=== PATIENT | female | born 1965 | race Caucasian/White ===

== ENCOUNTER 2017-08-26 10:54 | Day surgery (SDC) | payer OTHER ==
[2017-08-26] VITALS (14 sets, daily range): BP systolic 106–131; BP diastolic 57–75; PULSE 46–72; RESP 12–16; Ht 167.6 cm; Wt 72.6 kg
[~2017-08-26] VITALS: Ht 167.6 cm; Wt 72.6 kg
[~2017-08-26 10:54] MED LIST: CEFAZOLIN 2 GM/50 ML (PMX) 50 ML IVPB SCH; CEPH-443 PO; IBUP-1542 PO; SOD CHLORIDE 0.9% 1,000 ML IV SCH
--- NOTE | 2017-08-26 11:58 | RADRPT ---
PROCEDURE: XR Chest 1 View. CLINICAL INDICATION: Abnormal breath sounds, preop. TECHNIQUE: AP view of the chest was obtained. COMPARISON: None. FINDINGS: The cardiomediastinal silhouette is within normal limits. No consolidations are identified. No pneu mothorax is seen. Osseous structures are intact. IMPRESSION: No visualized active disease. RPTAT: AA .Justin Hill MD, Date Time Electronically viewed and signed by .Justin Hill MD, on 08/26/2017 11:58 .P/
[2017-08-26] MEDS ORDERED: CHOL100062 PO (12:18)
[2017-08-26] MEDS ORDERED: FENO48TA4 PO (12:19)
[2017-08-26] MEDS ORDERED: ASPI-664 PO (12:19)
[2017-08-26] MEDS ORDERED: TRAZ50TA18 PO (12:19)
[2017-08-26] MEDS ORDERED: PARO10TA26 PO (12:20)
[2017-08-26] MEDS ORDERED: MIDAZOLAM 1 MG/ML 2 ML INJ ONE (12:26)
[2017-08-26] MEDS ORDERED: FENTAnyl 50 MCG/ML VIAL ONE (12:26)
[2017-08-26] MEDS ORDERED: ROCURONIUM 50 MG INJ ONE (12:26)
[2017-08-26] MEDS ORDERED: CEFAZOLIN 1 GM INJ ONE (12:26)
[2017-08-26] MEDS ORDERED: ROPIVACAINE 0.5 % 30 ML VIAL ONE (12:26)
[2017-08-26] MEDS ORDERED: PROPOFOL 20 ML ONE (12:26)
[2017-08-26] MEDS ORDERED: METOCLOPRAMIDE 10 MG INJ ONE (13:42)
[2017-08-26] MEDS ORDERED: DEXAMETHASONE 4 MG/ML 1 ML INJ ONE (13:42)
[2017-08-26] MEDS ORDERED: SUGAMMADEX SODIUM 200 MG/2 ML VIAL IV ONE (13:42)
[2017-08-26] MEDS ORDERED: KETOROLAC 30 MG INJ ONE (13:42)
[2017-08-26] MEDS ORDERED: ONDANSETRON 4 MG INJ ONE (13:42)
--- NOTE | 2017-08-26 13:51 | OPR ---
Date/Time of Note Date/Time of Note DATE: 08/26/17 TIME: 13:49 Operative Report Procedure Date: Aug 26, 2017 Preoperative Diagnosis left inguinal hernia Postoperative Diagnosis same Operation/Procedure Performed open left inguinal hernia repair with ultrapro hernia system mesh medium Surgeon Abdi Santoyo MD Environmental Services Specialist none Anesthesia Type: general Estimated Blood Loss: 0 - 10 ml's Transfusion none Specimen none Grafts/Implants none Complications none Pt Condition Post Procedure: stable Indications This is a 52-year-old female with symptomatic left inguinal hernia. She requests surgical repair. Risks alternatives benefits and percent were discussed the patient. Patient expresses understanding consents to the operation. Procedure Description Patient taken to the OR and prepped and draped in usual sterile fashion. Surgical timeout was performed. IV antibiotics were given. Left inguinal oblique incision is made with a 10 blade. Dissection cautery was carried onto the extremity fascia. The extremity is open with a 15 blade. This incision is extended medially inferiorly lateral superiorly with Metzenbaum scissors. Round ligament is identified and divided.. Indirect hernia is identified and reduced. This area was bolstered with the distal portion of the ultrapure hernia system mesh. The disc portion is secured in place with a running 0 Prolene from the pubic tubercle along the shelving edge of the inguinal ligament. Superiorly to enter oblique the disc is secured with interrupted 3-0 Vicryl. [place]lay mesh is secured in a similar fashion from the pubic tubercle with 0 Prolene in a running fashion. Onlay mesh is secured to the internal oblique with interrupted 3-0 Vicryl. Externally fascia is closed a running 3-0 Vicryl. Mendy's was closed with interrupted 3-0 Vicryl. Skin is closed and skin nurys. Dry dressings were applied. Eufemia SANTOYO Aug 26, 2017 13:51
[2017-08-26] MEDS ORDERED: DIPHENHYDRAMINE 50 MG INJ IV PRN (14:00)
[2017-08-26] MEDS ORDERED: MEPERIDINE 25 MG INJ IV PRN (14:00)
[2017-08-26] MEDS ORDERED: LABETALOL HCL 20MG INJ IV PRN (14:00)
[2017-08-26] MEDS ORDERED: morphine (1 MG/ML) 10ML SYRINGE IV PRN ×3 (14:00)
[2017-08-26] MEDS ORDERED: OXYCODONE/ACETAMINOPHEN (5/325) TAB PO PRN (14:00)
[2017-08-26] MEDS ORDERED: HYDROCODONE/APAP (5/325) TAB PO ONE (14:00)
[2017-08-26] MEDS ORDERED: FENTAnyl 50 MCG/ML VIAL IV PRN ×3 (14:00)
[2017-08-26] MEDS ORDERED: EPHEDrine SULFATE 50 MG/5 ML SYG IV PRN (14:00)
--- NOTE | 2017-08-26 19:32 | RADRPT ---
Vent Rate: 63 bpm RR Interval: 0 msec TX Interval: 172 msec QRS Duration: 82 msec QT Interval: 414 msec QTC Interval: 423 msec P-R-T [place]: 34 - 21 - 36 degrees Normal sinus rhythm with sinus arrhythmia Normal ECG Electronically Signed By: Ancelmo Trejo [id number]
--- NOTE | 2017-08-26 19:32 | RADRPT ---
Vent Rate: 63 bpm RR Interval: 0 msec [place] Interval: 172 msec QRS Duration: 82 msec QT Interval: 414 msec QTC Interval: 423 msec P-R-T [place]: 34 - 21 - 36 degrees Normal sinus rhythm with sinus arrhythmia Normal ECG Electronically Signed By: Ancelmo Trejo [id number]
--- NOTE | 2017-08-26 19:32 | RADRPT ---
Vent Rate: 63 bpm RR Interval: 0 msec [place] Interval: 172 msec QRS Duration: 82 msec QT Interval: 414 msec QTC Interval: 423 msec P-R-T [place]: 34 - 21 - 36 degrees Normal sinus rhythm with sinus arrhythmia Normal ECG Electronically Signed By: Ancelmo Trejo [id number]
== END 2017-08-27 10:11 | disposition home or self-care (01) ==
LOC: SDS 10:54
PROVIDERS: ATTEND Surgery
DX: K40.90 Unilateral inguinal hernia, without obstruction or gangrene, not specified as recurrent (principal)
CPT/HCPCS: 49505; 71010; 84703; 93005; C1781; J0690; J1100; J1885; J2175; J2250; J2405; J2765; J2795; J3010

== ENCOUNTER 2017-09-18 10:30 | Emergency (ER) | payer OTHER ==
[~2017-09-18] VITALS: Wt 72.1 kg
[~2017-09-18 10:30] MED LIST changes: +ASPI-664 PO; -CEFAZOLIN 2 GM/50 ML (PMX) 50 ML IVPB SCH; -CEPH-443 PO; +CHOL100062 PO; +FENO48TA4 PO; -IBUP-1542 PO; +PARO10TA26 PO; -SOD CHLORIDE 0.9% 1,000 ML IV SCH; +TRAZ50TA18 PO
[2017-09-18] MEDS ORDERED: ONDANSETRON 4 MG INJ IV STA (12:14)
[2017-09-18] MEDS ORDERED: morphine 2 MG INJ IV STA (12:14)
[2017-09-18] MEDS ORDERED: SOD CHLORIDE 0.9% 500 ML IV STA (12:14)
[2017-09-18 12:59] LABS: BASOPHILS % 0.3 % (0.0-2.0); EOSINOPHILS # 0.1 10^3/ul (0.0-0.5); EOSINOPHILS % 0.8 % (0.0-7.0); HEMATOCRIT 35.3 % (37.0-47.0); LYMPHOCYTES # 1.9 10^3/ul (0.8-2.9); LYMPHOCYTES % 30.6 % (15.0-51.0); MEAN CORPUSCULAR HEMOGLOBIN 28.6 pg (29.0-33.0); MEAN CORPUSCULAR VOLUME 84.2 fl (82.0-101.0); MEAN PLATELET VOLUME 11.2 fl (7.4-10.4); MONOCYTE # 0.4 10^3/ul (0.3-0.9); MONOCYTES % 6.2 % (0.0-11.0); NEUTROPHIL # 3.8 10^3/ul (1.6-7.5); NEUTROPHILS % 61.9 % (39.0-77.0); PLATELET COUNT 229 10^3/UL (140-415); RED BLOOD COUNT 4.19 10^6/ul (4.20-5.40); RED CELL DISTRIBUTION WIDTH 12.2 % (11.5-14.5); WHITE BLOOD COUNT 6.1 10^3/ul (4.8-10.8)
[2017-09-18 13:09] VITALS: BP 107/74; PULSE 54; RESP 12
[2017-09-18 13:28] LABS: ALBUMIN 4.3 g/dl (3.3-4.9); ALBUMIN/GLOBULIN RATIO 1.59; BILIRUBIN,INDIRECT 0.2 mg/dl (0-1.1); BILIRUBIN,TOTAL 0.2 mg/dl (0.2-1.3); CALCIUM 9.6 mg/dl (8.4-10.2); CREATININE 0.89 mg/dl (0.44-1.00); POTASSIUM 4.2 mmol/L (3.5-5.1)
[2017-09-18] MEDS ORDERED: IOHEXOL 300MG/ML 150 ML BTL ONE (13:54)
[2017-09-18] MEDS ORDERED: SOD CHLORIDE 0.9% 100 ML ONE (13:54)
[2017-09-18] MEDS ORDERED: HYDR-906 PO (14:02)
[2017-09-18] MEDS ORDERED: ONDA4TAB14 PO (14:02)
--- NOTE | 2017-09-18 14:07 | ERD ---
ER Documentation Chief Complaint Chief Complaint ABD PAIN S/P ABD HERNIA SURGERY 08-26-2017 HPI This is a 52-year-old female who is status post left inguinal hernia surgery on August 26. The patient states that she has had abdominal pain since then that is left-sided with fullness around the surgical site. Occasionally this radiates up her left flank. Patient describes the pain as 6 out of 10 and intermittent with associated gas. She denies any fevers or chills, no nausea vomiting or diarrhea. ROS All systems reviewed and are negative except as per history of present illness. Medications Home Meds Active Scripts Ondansetron (Ondansetron Odt) 4 Mg Tab.rapdis, 4 MG PO Q6H Y for NAUSEA AND/OR VOMITING, #30 TAB Prov:BABATUNDE RAMIREZ MD 09/18/17 Hydrocodone/Acetaminophen ([place] 5-325 Tablet) 1 Each Tablet, 1 TAB PO Q6H Y for PAIN, #7 TAB Prov:BABATUNDE RAMIREZ MD 09/18/17 Reported Medications Paroxetine Hcl* (Paxil*) 10 Mg Tablet, 10 MG PO DAILY, TAB 08/26/17 Trazodone Hcl* (Trazodone Hcl*) 50 Mg Tablet, 50 MG PO QHS, #30 TAB 08/26/17 Fenofibrate Nanocrystallized* (Fenofibrate*) 48 Mg Tablet, 48 MG PO DAILY, TAB 08/26/17 Aspirin (Low Dose Aspirin) 81 Mg Tablet.dr, 81 MG PO DAILY, #30 TAB 08/26/17 Cholecalciferol* (Vitamin D3*) 1,000 Unit Tablet, 1000 UNIT PO DAILY, TAB 08/26/17 Allergies Allergies: Coded Allergies: No Known Allergy (Unverified , 09/18/17) PMhx/Soc History of Surgery: Yes (Hernia) Anesthesia Reaction: No Hx Neurological Disorder: No Hx Respiratory Disorders: No Hx Cardiac Disorders: No Hx Psychiatric Problems: No Hx Miscellaneous Medical Probl: No Hx Alcohol Use: No Hx Substance Use: No Hx Tobacco Use: No Smoking Status: Never smoker FmHx Family History: No diabetes Physical Exam Vitals Vital Signs Date Time Temp Pulse Resp B/P Pulse Ox O2 Delivery O2 Flow Rate FiO2 09/18/17 13:09 54 12 107/74 100 Room Air 09/18/17 12:19 56 10 120/72 99 Room Air 09/18/17 10:35 98.7 77 18 121/62 96 Physical Exam General: Well developed, well nourished, no acute distress Head: Normocephalic, atraumatic. Eyes: Pupils equally reactive, EOM intact ENT: Moist mucous membranes Neck: Supple, no lymphadenopathy Respiratory: Lungs clear bilaterally, no distress Cardiovascular: RRR, no murmurs, rubs, or gallops Abdominal: Soft, mild fullness to the lateral aspect of the surgical wound at the surgical wound is intact without drainage or discharge, no rebound or guarding or peritonitis, no localization of pain. : Deferred MSK: No edema, no unilateral swelling, 5/5 strength Neurologic: Alert and oriented, moving all extremities, normal speech, no focal weakness, no cerebellar signs Skin: No rash Psych: Normal mood Result Diagram: 09/18/17 1230 09/18/17 1230 Results 24 hrs Laboratory Tests Test 09/18/17 12:30 White Blood Count 6.110^3/ul Red Blood Count 4.1910^6/ul Hemoglobin 12.0g/dl Hematocrit 35.3% Mean Corpuscular Volume 84.2fl Mean Corpuscular Hemoglobin 28.6pg Mean Corpuscular Hemoglobin Concent 34.0g/dl Red Cell Distribution Width 12.2% Platelet Count 69612^3/UL Mean Platelet Volume 11.2fl Neutrophils % 61.9% Lymphocytes % 30.6% Monocytes % 6.2% Eosinophils % 0.8% Basophils % 0.3% Nucleated Red Blood Cells % 0.0/100WBC Neutrophils # 3.810^3/ul Lymphocytes # 1.910^3/ul Monocytes # 0.410^3/ul Eosinophils # 0.110^3/ul Basophils # 0.010^3/ul Nucleated Red Blood Cells # 0.010^3/ul Sodium Level 142mmol/L Potassium Level 4.2mmol/L Chloride Level 103mmol/L Carbon Dioxide Level 29mmol/L Anion Gap 14 Blood Urea Nitrogen 20mg/dl Creatinine 0.89mg/dl Glucose Level 89mg/dl Calcium Level 9.6mg/dl Total Bilirubin 0.2mg/dl Direct Bilirubin 0.00mg/dl Indirect Bilirubin 0.2mg/dl Aspartate Amino Transf (AST/SGOT) 17IU/L Alanine Aminotransferase (ALT/SGPT) 28IU/L Alkaline Phosphatase 66IU/L Total Protein 7.0g/dl Albumin 4.3g/dl Globulin 2.70g/dl Albumin/Globulin Ratio 1.59 Lipase 191U/L Current Medications Medications (Trade) Dose Ordered Sig/Alexia Route PRN Reason Start Time Stop Time Status Last Admin Dose Admin Sodium Chloride (NS) 500 ml @ 500 mls/hr Q1H STAT IV 09/18/17 12:14 09/18/17 13:13 DC 09/18/17 12:41 Morphine Sulfate (morphine) 2 mg ONCE STAT IV 09/18/17 12:14 09/18/17 12:15 DC 09/18/17 12:41 Ondansetron HCl (Zofran Inj) 4 mg ONCE STAT IV 09/18/17 12:14 09/18/17 12:15 DC 09/18/17 12:41 IV Flush 10 ml 10 ml STK-MED ONCE .ROUTE 09/18/17 13:54 09/18/17 13:55 DC Sodium Chloride (NS) 100 ml @ ud STK-MED ONCE .ROUTE 09/18/17 13:54 09/18/17 13:55 DC Iohexol (Omnipaque 300mg/ ml) 150 ml STK-MED ONCE .ROUTE 09/18/17 13:54 09/18/17 13:55 DC Procedures/MDM EKG, MONITORS, & DIAGNOSTIC IMAGING: CT abdomen and pelvis: Pending LAB INTERPRETATION: No leukocytosis or hepatobiliary obstruction MEDICAL DECISION MAKING: The patient presents with postoperative abdominal pain. This is possibly related to a seroma versus postoperative swelling. The patient does not exhibit any signs or symptoms concerning for bowel obstruction. The patient's duration of symptoms is atypical for abscess. However, given that she is postoperative I believe CT imaging would be appropriate. This could be normal postoperative pain and discomfort and possibly some mild constipation. ER COURSE: Patient's laboratory testing is unrevealing. I spoke to Dr. Longo, the patient's surgeon. He recommends follow-up as an outpatient is able with plan of care. The patient CT imaging is pending at the time of signout. The patient will be endorsed to the oncoming provider. If negative the patient can be safely discharged home with outpatient follow-up with her surgeon as documented. I kept the patient and/or family informed of laboratory and diagnostic imaging results throughout the emergency room course. DISPOSITION PLAN: We discussed follow up with the patient's primary care doctor within 24 to 48 hours as needed. We also discussed return to the emergency room for worsening symptoms or worsening condition. Outpatient referral: Dr. Longo Discharge Medications: norco, zofran, otc colace Departure Diagnosis: Primary Impression: Abdominal pain Abdominal location: generalized Qualified Code: R10.84 - Generalized abdominal pain Condition: Stable Patient Instructions: Abdominal Pain Referrals: HOLLY REGAN MD (PCP) Eufemia LONGO Additional Instructions: Call your primary care doctor TOMORROW for an appointment during the next 1 WEEK.Tell the night guard that you were referred from this facility.See the doctor sooner or return here if your condition worsens before your appointment time. BABATUNDE RAMIREZ MD Sep 18, 2017 14:07
--- NOTE | 2017-09-18 14:15 | RADRPT ---
PROCEDURE: CT Abdomen and Pelvis with contrast. CLINICAL INDICATION: Abdominal pain TECHNIQUE: CT scan of the abdomen and pelvis with contrast was performed on a multidetector high-r esolution CT scanner. Coronal and sagittal reformatted images were obtained from the axial source im ages. Images were reviewed on a high-resolution PACS workstation. 80 cc of Isovue 300 iodinated cont rast was administered intravenously without reported complication. The total exam CTDI equals 12 mG y and the total exam DLP equals 708 mGy-cm. One or more of the following dose reduction techniques were used: Automated exposure control, Adjustment of the mA and/or kV according to patient size, and /or use of iterative reconstruction technique. DICOM images are available. COMPARISON: None. FINDINGS: The lung bases are clear. Small hepatic cyst. Portal vein is patent. No pancreatic ductal dilatation. Spleen and adrenals are unremarkable. No focal pericholecystic inflammatory changes. No hydronephrosis. No obstructing renal stone. Left lower renal pole cyst. No bowel obstruction. Normal-caliber appendix. No significant retroperitoneal lymphadenopathy, ascites or evidence of pneumoperitoneum. Mild aortic atherosclerosis. IMPRESSION: No acute intra-abdominal process identified. No evidence of bowel obstruction or appendicitis. RPTAT: AA .Romero Carvajal MD, MD Date Time Electronically viewed and signed by .Romero Carvajal MD, on 09/18/2017 14:15 .T/
[2017-09-18 14:57] LABS: ADD UMIC NO; UR ASCORBIC ACID 20 mg/dL (NEGATIVE); UR BACTERIA FEW /HPF (NONE SEEN); UR BILIRUBIN (Dip) NEGATIVE (NEGATIVE); UR BLOOD (Dip) NEGATIVE (NEGATIVE); UR CLARITY SLIGHTLY CLOUDY (CLEAR); UR COLOR YELLOW (YELLOW); UR GLUCOSE (Dip) NEGATIVE (NEGATIVE); UR KETONES (Dip) NEGATIVE (NEGATIVE); UR LEUKOCYTE ESTERASE (Dip) NEGATIVE Leu/ul (NEGATIVE); UR NITRITE (Dip) NEGATIVE (NEGATIVE); UR RBC 13 /HPF (0-5); UR SPECIFIC GRAVITY (Dip) 1.015 (1.003-1.030); UR TOTAL PROTEIN (Dip) NEGATIVE (NEGATIVE); UR UROBILINOGEN (Dip) NEGATIVE (NEGATIVE)
== END 2017-09-18 14:30 | disposition home or self-care (01) ==
LOC: E/R 10:30
DX: R10.84 Generalized abdominal pain (principal); R40.2252 Coma scale, best verbal response, oriented, at arrival to emergency department; R40.2142 Coma scale, eyes open, spontaneous, at arrival to emergency department; R40.2362 Coma scale, best motor response, obeys commands, at arrival to emergency department; Z79.82 Long term (current) use of aspirin
CPT/HCPCS: 74177; 80053; 81001; 81003; 83690; 85025; J2270; J2405; J7040; Q9967; 36415; 96374; 96375